=== PATIENT | male | born 1980 | race Caucasian/White ===

== ENCOUNTER 2017-04-20 01:02 | Emergency (ER) | payer OTHER ==
[2017-04-20 01:03] VITALS: BP 173/91; PULSE 106; RESP 15; TEMP 99; O2SAT 97
[2017-04-20] MEDS ORDERED: POLY10O EACH EYE (01:23)
--- NOTE | 2017-04-20 01:25 | PD ---
HPI Chief Complaint: Skin Problem Time Seen by Provider: 01:15 Travel History International Travel<30 days: No Contact w/Intl Traveler<30days: No Traveled to known affect area: No History of Present Illness HPI 37-year-old male here with left eye irritation, drainage, matting itching. Symptoms started yesterday. He has had conjunctivitis in the past and this feels similar. Denies pain, blurred vision. He does not work contacts or glasses. In addition the patient has had a few papular skin lesions on his face intermittently over the past few weeks. They're mildly itchy. No other complaints. [facility] Past Medical History Medical History: Denies Significant Hx Diminished Hearing: No Past Surgical History Appendectomy: Yes Social History Alcohol Use: Yes (SOCIALLY ) Tobacco Use: No (1/2PPD ) Substance Use: No Allergies-Medications (Allergen,Severity, Reaction): Coded Allergies: No Known Allergies (Unverified , 04/20/17) Reported Meds & Prescriptions Reported Meds & Active Scripts Active Polytrim Opth Drops (Polymyxin/Trimethoprim Sulfate) 10,000-0.1 Unit/Ml-% Soln 1 Drop EACH EYE Q6HR 7 Days Review of Systems Except as stated in HPI: all other systems reviewed are Neg Physical Exam Narrative GENERAL: Well-nourished male in no acute distress SKIN: Warm and dry. A few very tiny papules noted on the face. HEAD: Atraumatic. Normocephalic. EYES: Pupils equal and round reactive to light extraocular muscles are intact mild left eye conjunctival injection is present. ENT: No nasal bleeding or discharge. Mucous membranes pink and moist. NECK: Trachea midline. No JVD. Data Data Last Documented VS Vital Signs Date Time Temp Pulse Resp B/P Pulse Ox O2 Delivery O2 Flow Rate FiO2 04/20/17 01:08 18 04/20/17 01:03 99.0 106 173/91 97 Room Air [facility] Medical Decision Making Medical Screen Exam Complete: Yes Emergency Medical Condition: Yes Medical Record Reviewed: Yes Differential Diagnosis Conjunctivitisbacterial versus viral versus allergic versus chemical Narrative Course 37-year-old male presents with left eye redness, irritation and drainage. Examination reveals mild conjunctivitis. In addition he has a few nonspecific facial papular lesions which could be mild folliculitis versus acne. Recommended conservative therapy with soap and water. Stable for discharge. Diagnosis Primary Impression: Conjunctivitis Qualified Code: H10.32 - Acute conjunctivitis of left eye, unspecified acute conjunctivitis type Additional Instructions: Medication as prescribed. Follow-up with primary care as needed and return for any emergent medical conditions. Med/Other Pt SpecificInfo: Prescription(s) given Scripts Polymyxin B-Trimethoprim Opth Drops (Polytrim Opth Drops)10,000-0.1 Unit/Ml-% Soln1 Drop EACH EYE Q6HR 7 Days Ref 0 Prov:Isreal Mcgrath MD 04/20/17 Disposition: 01 DISCHARGE HOME Condition: Stable Gavin Suh Apr 20, 2017 01:25
== END 2017-04-20 01:48 | disposition home or self-care (01) ==
LOC: NEPD 01:02
DX: H10.32 Unspecified acute conjunctivitis, left eye (principal); R21 Rash and other nonspecific skin eruption; F17.210 Nicotine dependence, cigarettes, uncomplicated; Z79.899 Other long term (current) drug therapy
CPT/HCPCS: 99283